=== PATIENT | female | born 1985 | race African-American/Black ===

== ENCOUNTER 2022-11-05 18:56 | Emergency (ER) | payer OTHER ==
[~2022-11-05] VITALS: Ht 170.2 cm; Wt 100.0 kg
[2022-11-05 19:03] VITALS: BP 152/83
== END 2022-11-06 00:05 | disposition left against medical advice (07) ==
LOC: ER 18:56
DX: Z53.21 Procedure and treatment not carried out due to patient leaving prior to being seen by health care provider (principal); Z98.890 Other specified postprocedural states

== ENCOUNTER 2024-07-15 22:06 | Emergency (ER) | payer SELFPAY ==
[~2024-07-15] VITALS: Ht 170.2 cm; Wt 99.7 kg
[2024-07-15 22:38] VITALS: BP 124/80; TEMP 98.6; O2SAT 100
[2024-07-15 22:40] VITALS: PULSE 84; RESP 16; O2SAT 100
[2024-07-15 23:26] LABS: CLARITY URINE CLOUDY (CLEAR); COLOR URINE YELLOW (YELLOW); GLUCOSE URINE NEGATIVE (NEGATIVE); KETONES URINE NEGATIVE (NEGATIVE); LEUKOCYTE ESTERASE URINE 1+ (NEGATIVE); NITRITE URINE NEGATIVE (NEGATIVE); OCCULT BLOOD URINE NEGATIVE (NEGATIVE); PH URINE 6.5 (4.5-8.0); PROTEIN URINE TRACE (NEGATIVE); SPECIFIC GRAVITY URINE 1.028 (1.005-1.030)
[2024-07-15] MEDS ORDERED: DOXY100C74 MT (23:28)
[2024-07-15] MEDS ORDERED: DOXYCYCLINE HYCLATE 100MG CAPSULE PO ONE (23:30)
[2024-07-15 23:58] LABS: BACTERIA URINE 1+; RBC URINE TNTC /hpf (0-2); SQUAMOUS EPITHELIAL CELL URINE 2+ /lpf (RARE/1+); WBC URINE 0-2 /hpf (0-2)
[2024-07-16] MEDS: DOXYCYCLINE HYCLATE 100MG CAPSULE PO NR (00:01)
[2024-07-16] MEDS: CEFTRIAXONE SODIUM 500MG VIAL IM ONE (00:01)
[2024-07-18 13:06] LABS: CHLAMYDIA TRACHOMATIS NAA Negative (Negative); NEISSERIA GONORRHOEAE NAA Negative (Negative)
== END 2024-07-16 00:08 | disposition home or self-care (01) ==
LOC: ER 22:06
DX: N89.8 Other specified noninflammatory disorders of vagina (principal)
CPT/HCPCS: 99283; 87491; 87591; 81003; 81025; 96372; J0696

== ENCOUNTER 2024-10-28 20:54 | Emergency (ER) | payer OTHER ==
[~2024-10-28] VITALS: Ht 170.2 cm; Wt 102.0 kg
[~2024-10-28 20:54] MED LIST: DOXY100C74 MT
[2024-10-28 20:59] VITALS: O2SAT 100
[2024-10-28 21:10] VITALS: BP 118/66; PULSE 86; RESP 18; TEMP 97.8; O2SAT 100
[2024-10-28 21:37] LABS: CLARITY URINE CLOUDY (CLEAR); COLOR URINE YELLOW (YELLOW); GLUCOSE URINE NEGATIVE (NEGATIVE); KETONES URINE NEGATIVE (NEGATIVE); LEUKOCYTE ESTERASE URINE 3+ (NEGATIVE); NITRITE URINE NEGATIVE (NEGATIVE); OCCULT BLOOD URINE NEGATIVE (NEGATIVE); PROTEIN URINE NEGATIVE (NEGATIVE); SPECIFIC GRAVITY URINE 1.019 (1.005-1.030); UROBILINOGEN URINE 0.2 E.U./dL (0.2-1.0)
[2024-10-28 22:04] LABS: BACTERIA URINE TRACE; RBC URINE 0-2 /hpf (0-2); SQUAMOUS EPITHELIAL CELL URINE 1+ /lpf (RARE/1+); WBC URINE 15-25 /hpf (0-2)
[2024-10-28] MEDS ORDERED: AZITHROMYCIN 500 MG TABLET PO ONE (22:45)
[2024-10-28] MEDS: CEFTRIAXONE SODIUM 500MG VIAL IM ONE (23:32)
[2024-10-28] MEDS: AZITHROMYCIN 500 MG TABLET PO NR (23:46)
[2024-10-29] MEDS ORDERED: CEPH500C2 MT (00:19)
[2024-10-31 04:08] LABS: CHLAMYDIA TRACHOMATIS NAA Negative (Negative); NEISSERIA GONORRHOEAE NAA Negative (Negative)
== END 2024-10-29 00:39 | disposition left against medical advice (07) ==
LOC: ER 20:54
DX: O23.41 Unspecified infection of urinary tract in pregnancy, first trimester (principal); N39.0 Urinary tract infection, site not specified; Z3A.08 8 weeks gestation of pregnancy; Z98.890 Other specified postprocedural states
CPT/HCPCS: 99284; 87491; 87591; 81003; 87086; 87210; 96372; J0696